=== PATIENT | male | born 1955 | race Caucasian/White ===

== ENCOUNTER 2021-05-11 12:57 | Emergency (ER) | payer BC, OTHER ==
[~2021-05-11] VITALS: Ht 182.9 cm; Wt 79.5 kg
[2021-05-11] MEDS ORDERED: normal saline 1000ml 1,000 ML IV ONE (13:05)
[2021-05-11] MEDS ORDERED: TETanus/Pertussis (Acell)/Diphther VAC/PF (Tdap-Adult) 0.5ml syringe IMVAC ONE (13:05)
[2021-05-11] MEDS ORDERED: ceFAZolin/D5W- 1GM premix 50 ML IV ONE (13:19)
[2021-05-11] MEDS ORDERED: fentaNYL/PF 50MCG/1 ML 2ML syringe IV ONE (13:20)
[2021-05-11 13:22] LABS: BASOPHILS # (AUTO) 0.1 X10'3 (0-0.2); BASOPHILS % (AUTO) 1.2 % (0-1); EOSINOPHILS # (AUTO) 0.2 X10'3 (0-0.9); EOSINOPHILS % (AUTO) 2.6 % (0-6); HEMATOCRIT 41.2 % (42.0-52.0); HEMOGLOBIN 13.9 g/dl (14.0-17.9); LYMPHOCYTES # (AUTO) 2.4 X10'3 (1.1-4.8); MEAN CORPUSCULAR HEMOGLOBIN 30.5 PG (27.0-31.0); MEAN CORPUSCULAR HGB CONC 33.7 g/dL (33.0-36.5); MEAN CORPUSCULAR VOLUME 90.4 FL (78-98); MEAN PLATELET VOLUME 10.4 FL (7.4-10.4); MONOCYTES # (AUTO) 0.7 X10'3 (0-0.9); MONOCYTES % (AUTO) 9.6 % (2-12); NEUTROPHILS # (AUTO) 3.9 X10'3 (1.8-7.7); NEUTROPHILS % (AUTO) 53.6 % (42-75); PLATELET COUNT 219 X10'3 (140-440); RED BLOOD COUNT 4.55 X10'6 (4.70-6.10); RED CELL DISTRIBUTION WIDTH 14.1 % (11.5-14.5); WHITE BLOOD COUNT 7.3 X10'3 (4.5-11.0)
[2021-05-11 13:39] LABS: ALANINE AMINOTRANSFERASE 22 U/L (12-78); ALBUMIN 4.2 G/DL (3.4-5.0); ALBUMIN/GLOBULIN RATIO 1.3 (1.1-1.5); ALKALINE PHOSPHATASE 76 IU/L (46-116); ANION GAP 9 (8-16); ASPARTATE AMINO TRANSFERASE 24 U/L (10-37); BILIRUBIN,TOTAL 0.7 MG/DL (0.1-1.0); BLOOD UREA NITROGEN 17 MG/DL (7-18); CALCIUM 9.2 MG/DL (8.5-10.1); CHLORIDE 102 MMOL/L (99-107); GLUCOSE 119 MG/DL (70-104); SODIUM 136 MMOL/L (135-145); TOTAL CARBON DIOXIDE 24.9 MMOL/L (24-32); TOTAL PROTEIN 7.4 G/DL (6.4-8.2); eGFR 75 ML/MIN
[2021-05-11 13:44] LABS: POTASSIUM 3.8 MMOL/L (3.5-5.1)
[2021-05-11 14:51] VITALS: BP 106/70
== END 2021-05-11 15:01 | disposition short-term general hospital (02) ==
LOC: ER 12:58
DX: S01.81XD Laceration without foreign body of other part of head, subsequent encounter (principal); S02.2XXD Fracture of nasal bones, subsequent encounter for fracture with routine healing; Z20.822 Contact with and (suspected) exposure to COVID-19; W29.3XXD Contact with powered garden and outdoor hand tools and machinery, subsequent encounter
CPT/HCPCS: 36415; 70450; 70486; 80053; 82948; 85025; 85610; 87635; 90471; 90715; 93005; 96365; 96375; 99285; C9803; J0690; J3010; J7030

== ENCOUNTER 2023-07-02 13:28 | Emergency (ER) | payer BC, MEDICARE ==
[~2023-07-02] VITALS: Ht 182.9 cm; Wt 77.3 kg
[2023-07-02 13:41] VITALS: TEMP 97.7
[2023-07-02] MEDS ORDERED: normal saline 1000ML IV soln IVB ONE (13:45)
[2023-07-02 13:57] LABS: LYMPHOCYTES # (AUTO) 3.1 X10'3 (1.1-4.8); MONOCYTES # (AUTO) 0.8 X10'3 (0-0.9); MONOCYTES % (AUTO) 10.2 % (2-12); WHITE BLOOD COUNT 7.9 X10'3 (4.5-11.0)
[2023-07-02 13:59] LABS: BASOPHILS # (AUTO) 0.1 X10'3 (0-0.2); EOSINOPHILS # (AUTO) 0.2 X10'3 (0-0.9); EOSINOPHILS % (AUTO) 3.1 % (0-6); HEMATOCRIT 42.2 % (42.0-52.0); HEMOGLOBIN 14.4 g/dl (14.0-17.9); LYMPHOCYTES % (AUTO) 39.3 % (21-51); MEAN CORPUSCULAR HEMOGLOBIN 31.1 PG (27.0-31.0); MEAN CORPUSCULAR HGB CONC 34.1 g/dL (33.0-36.5); MEAN CORPUSCULAR VOLUME 91.2 FL (78-98); MEAN PLATELET VOLUME 10.8 FL (7.4-10.4); NEUTROPHILS # (AUTO) 3.7 X10'3 (1.8-7.7); NEUTROPHILS % (AUTO) 46.4 % (42-75); PLATELET COUNT 219 X10'3 (140-440); RED BLOOD COUNT 4.63 X10'6 (4.70-6.10); RED CELL DISTRIBUTION WIDTH 13.8 % (11.5-14.5)
[2023-07-02 14:09] LABS: ALANINE AMINOTRANSFERASE 26 U/L (12-78); ALBUMIN 3.9 G/DL (3.4-5.0); ALBUMIN/GLOBULIN RATIO 1.1 (1.1-1.5); ALKALINE PHOSPHATASE 69 IU/L (46-116); ANION GAP 10 (8-16); ASPARTATE AMINO TRANSFERASE 21 U/L (10-37); BILIRUBIN,TOTAL 0.5 MG/DL (0.1-1.0); BLOOD UREA NITROGEN 20 MG/DL (7-18); BUN/CREATININE RATIO 19.6 (10.0-20.0); CALCIUM 9.1 MG/DL (8.5-10.1); CHLORIDE 105 MMOL/L (99-107); CREATININE 1.02 MG/DL (0.60-1.10); GLUCOSE 132 MG/DL (70-104); POTASSIUM 3.3 MMOL/L (3.5-5.1); SODIUM 140 MMOL/L (135-145); TOTAL CARBON DIOXIDE 24.9 MMOL/L (24-32); TOTAL PROTEIN 7.3 G/DL (6.4-8.2); eGFR 73 ML/MIN
[2023-07-02] MEDS ORDERED: potassium Cl 20 mEq SR tablet PO STA (14:22)
[2023-07-02 14:31] VITALS: BP 103/73; PULSE 50; RESP 16; O2SAT 97
--- NOTE | 2023-07-02 14:31 | NUR ---
Patient was not diaphoretic anymore at this time. IV NS bolus infusing.
== END 2023-07-02 14:54 | disposition home or self-care (01) ==
LOC: ER 13:29
DX: K40.90 Unilateral inguinal hernia, without obstruction or gangrene, not specified as recurrent (principal); R55 Syncope and collapse
CPT/HCPCS: 36415; 71045; 80053; 82948; 83880; 84145; 84484; 85025; 93005; 96360; 99285; J7030

== ENCOUNTER 2023-08-06 10:17 | Day surgery (SDC) | payer MEDICARE, BC ==
[2023-08-01 16:25] LABS: BASOPHILS # (AUTO) 0.1 X10'3 (0-0.2); BASOPHILS % (AUTO) 1.1 % (0-1); EOSINOPHILS # (AUTO) 0.2 X10'3 (0-0.9); EOSINOPHILS % (AUTO) 3.4 % (0-6); LYMPHOCYTES # (AUTO) 1.5 X10'3 (1.1-4.8); LYMPHOCYTES % (AUTO) 26.2 % (21-51); MEAN CORPUSCULAR HGB CONC 33.8 g/dL (33.0-36.5); MEAN CORPUSCULAR VOLUME 91.7 FL (78-98); MEAN PLATELET VOLUME 10.2 FL (7.4-10.4); MONOCYTES # (AUTO) 0.6 X10'3 (0-0.9); MONOCYTES % (AUTO) 9.8 % (2-12); NEUTROPHILS # (AUTO) 3.4 X10'3 (1.8-7.7); NEUTROPHILS % (AUTO) 59.5 % (42-75); PRE OP HEMATOCRIT 44.3 % (42.0-52.0); PRE OP PLATELET COUNT 186 X10'3 (140-440); PRE OP WHITE BLOOD COUNT 5.6 10'3 (4.8-10.8); RED BLOOD COUNT 4.83 X10'6 (4.70-6.10); RED CELL DISTRIBUTION WIDTH 14.2 % (11.5-14.5)
[2023-08-01 16:39] LABS: ALBUMIN 3.9 G/DL (3.4-5.0); ALBUMIN/GLOBULIN RATIO 1.1 (1.1-1.5); ALKALINE PHOSPHATASE 60 IU/L (46-116); BLOOD UREA NITROGEN 11 MG/DL (7-18); BUN/CREATININE RATIO 12.6 (10.0-20.0); CALCIUM 9.4 MG/DL (8.5-10.1); CHLORIDE 103 MMOL/L (99-107); CREATININE 0.87 MG/DL (0.60-1.10); PRE OP ALT 22 U/L (30-65); PRE OP ANION GAP 6 (8-16); PRE OP AST 19 U/L (10-37); PRE OP BILIRUB, TOTAL 0.4 MG/DL (0.0-1.0); PRE OP GLUCOSE 87 MG/DL (70-104); PRE OP POTASSIUM 4.4 MMOL/L (3.4-5.1); PRE OP SODIUM 140 MMOL/L (135-145); TOTAL CARBON DIOXIDE 31.4 MMOL/L (24-32); TOTAL PROTEIN 7.3 G/DL (6.4-8.2); eGFR 88 ML/MIN
[2023-08-01 19:12] LABS: BILIRUBIN,URINE NEGATIVE (Neg); CLARITY,URINE CLEAR (Clear); COLOR,URINE YELLOW (Yellow); GLUCOSE, URINE NEGATIVE (Neg); KETONES,URINE NEGATIVE (Neg); LEUKOCYTE ESTERASE ,URINE NEGATIVE (Neg); NITRITES, URINE NEGATIVE (Neg); OCCULT BLOOD,URINE NEGATIVE (Neg); PROTEIN,URINE NEGATIVE (Neg); UROBILINOGEN,URINE 0.2 E.U/dL (0.2-1.0)
[2023-08-01 19:34] LABS: UA COLLECTION TYPE NON-SPECIFIED
[2023-08-06] VITALS (13 sets, daily range): BP systolic 109–146; BP diastolic 55–87; PULSE 58–81; RESP 12–19; TEMP 97.4; O2SAT 92–99
[~2023-08-06] VITALS: Ht 182.9 cm; Wt 77.0 kg
[~2023-08-06 10:17] MED LIST: FLO0.4C PO; cefazolin 2gm/D5W 100mL 100 ML IV ONE; famotidine 20mg tablet PO ONE; ringers solution, lacted 1,000 ML IV SCH
[2023-08-06] MEDS ORDERED: dexamethasone sod phosphate 10mg/ml inj ONE (13:54)
[2023-08-06] MEDS ORDERED: sevoflurane 250ml liquid IH ONE (13:54)
[2023-08-06] MEDS ORDERED: midazolam 1 mg/ML 2ml injection ONE (13:54)
[2023-08-06] MEDS ORDERED: rocuronium 10mg/ml inj IV ONE ×2 (13:54→13:56)
[2023-08-06] MEDS ORDERED: meperidine/PF 25mg/ml syringe ONE (13:54)
[2023-08-06] MEDS ORDERED: fentaNYL/PF 50MCG/1 ML 2ML syringe ONE (13:54)
[2023-08-06] MEDS ORDERED: LIDOcaine 2% (20mg/ml) 5ml vial ONE (13:55)
[2023-08-06] MEDS ORDERED: propofol inj 20 ML IV ONE (13:55)
[2023-08-06] MEDS ORDERED: ondansetron/PF 4mg/2ml inj ONE (14:07)
[2023-08-06] MEDS ORDERED: BUPIVAcaine/PF 2.5 mg/ml (0.25%) 30ml vial ONE (14:08)
[2023-08-06] MEDS ORDERED: ketorolac trometh. 30mg/ml inj. ONE (15:38)
[2023-08-06] MEDS ORDERED: acetaminophen 1,000mg/100ml IV 100 ML IV ONE (15:38)
[2023-08-06] MEDS ORDERED: glycopyrrolate 0.2mg/ml inj ONE (15:46)
--- NOTE | 2023-08-06 15:57 | NUR ---
Received from OR via [facility] , accompanied by Anesthesiologist and report given by RAYMOND Anesthesiologist. PATIENT WAKING UP, NO S/S OF PAIN, V/S WNL, SCD ON , PIV 20G RIGHT AC, DERMABONDED LAPS SITES CLOSED C/D/I TO ABDOMEN. BLOOD OOZING FROM PENIS. AWARE AND NO NEW ORDER RECEIVED AT THIS TIME. Addendum: 08/06/23 at 1612 by Michael Lugo RN Amended: Links added.
[2023-08-06] MEDS ORDERED: morphine 2 MG/ML inj. syringe IV PRN (16:15)
[2023-08-06] MEDS ORDERED: morphine 4 MG/ML inj SYRINge IV PRN (16:15)
[2023-08-06] MEDS ORDERED: meperidine/PF 25mg/ml syringe IV PRN ×3 (16:15)
[2023-08-06] MEDS ORDERED: proCHLORperazine 10 MG/2 ml inj IV PRN (16:15)
[2023-08-06] MEDS ORDERED: ondansetron/PF 4mg/2ml inj IV PRN (16:15)
[2023-08-06] MEDS ORDERED: ringers solution, lacted 1,000 ML IV SCH (16:15)
--- NOTE | 2023-08-06 17:40 | NUR ---
PATIENT URINATED 100 CC OF RED URINE. MD KUMARI. PERFORMED BLADDER SCANNER AND 0 CC NOTED. PATIENT TOLERATED PROCEDURE WELL. Addendum: 08/06/23 at 1755 by Michael Lugo RN Amended: Links added.
--- NOTE | 2023-08-06 17:57 | NUR ---
ALL DISCHARGE CRITERIA HAS BEEN MET. VSS, PAIN AT A TOLERABLE LEVEL, VOIDING AND ABLE TO SAFELY AMBULATE AND TRANSFER SELF. IV TAKEN OUT WITHOUT ANY COMPLICATIONS. ALL DISCHARGE INSTRUCTIONS COVERED WITH PATIENT AND ALL QUESTIONS ANSWERED. PATIENT TAKEN OUT VIA WHEELCHAIR WITH ALL BELONGINGS TO PERSONAL VEHICLE WHERE FAMILY DROVE PATIENT HOME. Addendum: 08/06/23 at 1805 by Michael Lugo RN Amended: Links added.
== END 2023-08-06 17:57 | disposition home or self-care (01) ==
LOC: PAS 10:17
PROVIDERS: ATTEND Surgery
DX: K40.00 Bilateral inguinal hernia, with obstruction, without gangrene, not specified as recurrent (principal); G47.30 Sleep apnea, unspecified; Z79.899 Other long term (current) drug therapy; Z98.890 Other specified postprocedural states
CPT/HCPCS: 36415; 49650; 80053; 81003; 82948; 85025; 93005; C1781; J0131; J0690; J1100; J1885; J2175; J2250; J2405; J2704; J3010; J3490; J7030; J7120; Z7506; Z7508; Z7512; A4215; A4618; C1758